=== PATIENT | male | born 1960 | race Hispanic/Latino ===

== ENCOUNTER 2016-10-03 07:59 | Emergency (ER) | payer OTHER ==
[2016-10-03 08:05] VITALS: BP 125/78; PULSE 76; RESP 20; TEMP 98.3; O2SAT 98
[2016-10-03] MEDS ORDERED: Bacitracin 500 Units/gm Oint Foilpak UD TOP STA (08:47)
--- NOTE | 2016-10-03 08:49 | C.PDOC ---
History Of Present Illness Patient is a 56 y/o male that presents to the ED for evaluation of painful blisters on the right heel and top of the right foot for the last 2 days. Patient believes that his blister might have opened up when he got a pedicure done. Otherwise, denies any sensory changes, weakness, numbness, swelling, fever , chills, or any other other associated symptoms at this time. Chief Complaint (Nursing): Abnormal Skin Integrity History Per: Patient History/Exam Limitations: no limitations Onset/Duration Of Symptoms: Days (2) Current Symptoms Are (Timing): Still Present Location Of Injury: Right: Foot Quality Of Symptoms: Painful. denies: Itching, Swollen, Draining Recent travel outside of the [place]: No Additional History Per: Patient Past Medical History Reviewed: Historical Data, Nursing Documentation, Vital Signs Vital Signs: Last Vital Signs Temp 98.3 F 10/03/16 08:02 Pulse 76 10/03/16 08:02 Resp 20 10/03/16 08:02 BP 125/78 10/03/16 08:02 Pulse Ox 98 10/03/16 11:05 Family History: States: No Known Family Hx - Social History Hx Alcohol Use: No Hx Substance Use: No Review Of Systems Except As Marked, All Systems Reviewed And Found Negative. Constitutional: Negative for: Fever, Chills Musculoskeletal: Positive for: Foot Pain (right ). Negative for: Leg Pain Skin: Positive for: Other (open blister on right foot) Neurological: Negative for: Weakness, Numbness Physical Exam - Physical Exam Appears: Non-toxic, No Acute Distress Skin: Warm, Dry, No Rash, Other (1cm of open blister on the right heel, mild marginal erythema, no swelling, no signs of infection; 5mm of unopened blister on the dorsum of right foot, no signs of infection) Extremity: Normal ROM, No Tenderness, No Pedal Edema, Capillary Refill (< 2 sec. ), No Deformity, No Swelling Pulses: Left Dorsalis Pedis: Normal, Right Dorsalis Pedis: Normal Neurological/Psych: Oriented x3, Normal Speech, Normal Cognition, Normal Motor, Normal Sensation ED Course And Treatment O2 Sat by Pulse Oximetry: 98 (on RA) Pulse Ox Interpretation: Normal Progress Note: Bacitracin was applied. Patient is being discharged home, and was advised not to wear closed toed shoes. Patient was instructed to follow up with his PMD within 1-2 days, and to return to ED if he feels worse. Disposition - Disposition Disposition: HOME/ ROUTINE Disposition Time: 08:47 Condition: STABLE Additional Instructions: Follow up with your PMD within 1-2 days. Return to Ed if feel worse. Prescriptions: Mupirocin 2% Ointment [Bactroban Ointment] 1 appl TP BID #1 tube Instructions: Blister (ED) - Clinical Impression Clinical Impression: Blister - PA / CORPORATE SECURITIES RESEARCH ANALYST / Resident Statement MD/DO has reviewed & agrees with the documentation as recorded. - Scribe Statement The provider has reviewed the documentation as recorded by the Scribe Zach Rogers All medical record entries made by the Scribe were at my direction and personally dictated by me. I have reviewed the chart and agree that the record accurately reflects my personal performance of the history, physical exam, medical decision making, and the department course for this patient. I have also personally directed, reviewed, and agree with the discharge instructions and disposition.
[2016-10-03] MEDS ORDERED: Bacitracin 500 Units/gm Oint Foilpak UD ONE (09:05)
== END 2016-10-03 09:09 | disposition home or self-care (01) ==
LOC: C.ER 07:59
DX: S90.821A Blister (nonthermal), right foot, initial encounter (principal); X58.XXXA Exposure to other specified factors, initial encounter

== ENCOUNTER 2018-05-14 18:00 | Outpatient (CLI) | payer OTHER | END 2018-05-14 18:01 | disposition home or self-care (01) | LOC: C.RADIC 18:00 → C.RADH 18:01 | DX: S89.92XA Unspecified injury of left lower leg, initial encounter (principal); W19.XXXA Unspecified fall, initial encounter ==